=== PATIENT | female | born 1945 | race Caucasian/White ===

== ENCOUNTER 2020-10-05 13:55 | Emergency (ER) | payer MEDICARE, SELFPAY ==
[2020-10-05 14:04] VITALS: BP 128/73; PULSE 69; RESP 16; O2SAT 98; BMI 22.8
--- NOTE | 2020-10-05 14:20 | XRR_ITS ---
PROCEDURE INFORMATION: Exam: XR Right Ankle Exam date and time: 10/05/2020 2:23 PM Age: 75 years old Clinical indication: Injury or trauma; Fall; Blunt trauma; Ankle; Right TECHNIQUE: Imaging protocol: XR Right ankle. Views: 3 or more views. COMPARISON: No relevant prior studies available. FINDINGS: Bones/joints: Comminuted fracture of the distal shaft of the fibula. There is lateral angulation of the distal fracture fragment. Transverse fracture of the medial malleolus. Widening of the tibiofibular articulation. Disruption of the tibiotalar articulation. Talus and calcaneus appear intact. Soft tissues: Soft tissue swelling noted. XR/XR ankle RT min 3V* [id number] IMPRESSION: Fracture/dislocation of the right ankle the, as above.
--- NOTE | 2020-10-05 14:20 | CTR_ITS ---
PROCEDURE INFORMATION: Exam: CT Head Without Contrast Exam date and time: 10/05/2020 2:23 PM Age: 75 years old Clinical indication: Injury or trauma; Fall; Blunt trauma (contusions or hematomas); Without loss of consciousness; Patient HX: Missed and fell 3 steps C/O syncope shortly after; Additional info: Fall, loss of consciousness TECHNIQUE: Imaging protocol: Computed tomography of the head without contrast. Radiation optimization: All CT scans at this facility use at least one of these dose optimization techniques: automated exposure control; mA and/or kV adjustment per patient size (includes targeted exams where dose is matched to clinical indication); or iterative reconstruction. COMPARISON: No relevant prior studies available. RADIATION DOSE METRICS: Total DLP (mGy-cm): 723.36 FINDINGS: Brain: Moderate white matter disease and volume loss are identified. There is no acute infarct or edema. No hemorrhage. Cerebral ventricles: No ventriculomegaly. Bones/joints: Unremarkable. No acute fracture. Paranasal sinuses: Visualized sinuses are unremarkable. No fluid levels. Mastoid air cells: Visualized mastoid air cells are well aerated. Soft tissues: Unremarkable. CT/CT head wo con* [id number] IMPRESSION: There are no acute concerning abnormalities. Radiation Dose CTDIVOL = (mGy): DLP = 723.36 (mGy-cm)
--- NOTE | 2020-10-05 14:20 | XRR_ITS ---
PROCEDURE INFORMATION: Exam: XR Left Ankle Exam date and time: 10/05/2020 2:23 PM Age: 75 years old Clinical indication: Injury or trauma; Fall; Blunt trauma; Ankle; Left TECHNIQUE: Imaging protocol: XR Left ankle. Views: 3 or more views. COMPARISON: No relevant prior studies available. FINDINGS: Bones/joints: No fracture or other acute osseous abnormality. No joint narrowing, dislocation, or effusion noted. Soft tissues: Mild lateral soft tissue swelling. XR/XR ankle LT min 3V* [id number] IMPRESSION: 1. Mild lateral soft tissue swelling. 2. No acute fracture demonstrated.
--- NOTE | 2020-10-05 14:20 | CTR_ITS ---
PROCEDURE INFORMATION: Exam: CT Cervical Spine Without Contrast Exam date and time: 10/05/2020 2:23 PM Age: 75 years old Clinical indication: Injury or trauma; Fall; Blunt trauma; Patient HX: Missed and fell 3 steps TECHNIQUE: Imaging protocol: Computed tomography images of the cervical spine without contrast. Radiation optimization: All CT scans at this facility use at least one of these dose optimization techniques: automated exposure control; mA and/or kV adjustment per patient size (includes targeted exams where dose is matched to clinical indication); or iterative reconstruction. COMPARISON: No relevant prior studies available. RADIATION DOSE METRICS: Total DLP (mGy-cm): 281.69 FINDINGS: Vertebrae: No acute fracture. Normal alignment. Degenerative change is identified in the spine. There is disc space narrowing and osteophyte formation especially at C5/6 and C6/7. Soft tissues: Unremarkable. Lungs: Lung apices are normal. CT/CT cervical spin wo con* [id number] IMPRESSION: There is no evidence for fracture or facet dislocation. Radiation Dose CTDIVOL = (mGy): DLP = 281.69 (mGy-cm)
--- NOTE | 2020-10-05 14:37 | ED_ITS ---
HPI - Extremity Problem General: Chief complaint: Extremity Injury, Upper Stated complaint: RIGHT ANKLE DEFORMITY S/P FALL Time Seen by Provider: 10/05/20 13:55 Source: patient and EMS Mode of arrival: EMS Limitations: no limitations History of Present Illness: HPI Narrative: Patient is a 75-year-old female who presents to the emergency department following a fall. She was at an auction when she fell down some steps, about 3 steps. She sustained injury to both ankles but the right is more severe. She was unable to bear weight after the fall. She had an episode of loss of consciousness shortly after the fall, and it was brief and only lasted a few seconds. According to the patient she gets syncopal episodes when she is stressed. She complains of pain in both ankles only. She denies any neck pain, chest pain, abdominal pain, nausea or vomiting. She denies difficulty breathing. MD Complaint: extremity pain Pain Consistency: constant Location: left, right and lower extremity Severity scale (1-10): 10 Quality: sharp Radiation: none Relieving factors: nothing Exacerbating factors: weight bearing Associated symptoms: Reports arthralgias; Deny chest pain, fever(s), myalgias, rash or short of breath Review of Systems General: Reports: 10 or more systems reviewed and unremarkable except in HPI and below Const: Denies: fever(s) Card: Denies: chest pain Skin/Breast: Denies: rash Physical Exam Const: COMMON NORMALS: no acute distress, average body habitus, patient oriented x3, no limitations, healthy appearing, alert and well nourished HENMT: COMMON NORMALS: normocephalic, atraumatic and moist oral mucous membranes HEAD & SCALP: normocephalic and atraumatic Eye: COMMON NORMALS: Equal, round and reactive pupils present, EOMs intact bilaterally, conjunctivae normal and no scleral icterus CONJUNCTIVA: Yes conjunctivae normal PUPIL: Yes Equal, round and reactive pupils present Neck/C-Spine: COMMON NORMALS: full ROM, supple, no meningeal signs, no JVD and No carotid bruits Chest: COMMONS NORMALS: normal inspection of the chest and normal palpation of entire chest wall Resp: COMMON NORMALS: normal respiratory effort, No retractions, No use of accessory muscles, clear to auscultation bilaterally and percussion normal AUSCULTATION: clear to auscultation bilaterally PERCUSSION: percussion normal Cardio: COMMON NORMALS: no JVD, regular rate, regular rhythm, S1 normal heart sound present, S2 normal heart sound present, No gallops present (Cardio), No clicks present (Cardio), No murmurs present (Cardio), No rub (Cardio) and Peripheral pulses 2+ throughout RATE: regular rate RHYTHM: regular rhythm HEART SOUNDS: S1 normal heart sound present and S2 normal heart sound present PERIPHERAL PULSES: Peripheral pulses 2+ throughout GI: COMMON NORMALS: Normal to inspection, nondistended, normoactive bowel sounds present, Soft to palpation, non-tender, No hepatosplenomegaly present, no masses and no bruits PALPATION: Yes Soft to palpation and Yes No hepatosplenomegaly present Extremity: COMMON NORMALS: normal to inspection, full ROM, capillary refill normal, no calf tenderness and no pedal edema RIGHT LOWER EXTREMITY: Yes foot & digits Right ankle: Yes inspection (Swollen with some deformity noted.), Yes palpation (Marked tenderness to palpation both medially and laterally.), Yes ROM (Reduced range of motion) and Yes neurovascular exam (Brisk dorsalis pedis pulsation) LEFT LOWER EXTREMITY: Yes ankle joint Left ankle: Yes inspection (Swelling over the lateral malleolus), Yes palpation (Tenderness over the lateral malleolus), Yes ROM (Reduced) and Yes neurovascular exam (Intact with brisk dorsalis pedis.) Neuro: COMMON NORMALS: patient oriented x3 SENSORIUM/ORIENTATION: Yes alert MENINGEAL SIGNS: Yes no meningeal signs Skin: COMMON NORMALS: no rashes or lesions noted, no wounds, turgor normal, no jaundice, no petechiae and no mottling GENERAL SKIN EXAM: no rashes or lesions noted and turgor normal Procedures Orthopedic Joint Reduction Joint #1: Time Out Performed: Yes Side: right Joint Reduction Location: ankle Analgesia: procedural sedation Technique used: traction/counter-traction and direct manipulation Post-reduction neuro exam: intact Post-reduction vascular: intact Post Reduction X-Ray Obtained: Yes Post Reduction X-Ray Results: reduced Splint Applied: Yes Patient Tolerated Procedure: well Orthopedic Splinting/Casting Injury #1: Side: right Lower Extremity Injury Location: ankle Lower Extremity Immobilizer: posterior splint and stirrup splint Other Orthopedic Equipment: crutches Procedural Sedation Indication: fracture/dislocation reduction ASA Class: I Preparation: nuclear monitoring technician applied, pulse oximeter and supplemental O2 applied IV Etomidate dose (mg): 5 Patient Tolerated Procedure: well Complications: none Course Reevaluation(s): Reevaluation #1: Discussed her post reduction xrays with her - satisfactory alignment. Will discharge her home with crutches. She is f/u with ortho and [place] she states that she will follow up with an orthopedic surgeon close to her home. Time: 17:32 Vital Signs: Vital signs: Vital Signs Pulse Rate 93 10/05/20 18:44 Respiratory Rate 17 10/05/20 18:44 Blood Pressure 132/73 10/05/20 18:44 Pulse Oximetry 97 10/05/20 18:44 MDM - Extremity (Nontraumatic) MDM Narrative: Medical decision making narrative: Pleasant 75-year-old female patient who fell down some steps and sustained a closed fracture dislocation of her right ankle. The fracture dislocation was successfully reduced under procedural sedation and she was placed in a posterior leg splint with stirrup and discharge with crutches. She is not from the area to follow-up with her orthopedic surgeon or to her home. She also discharged home with a prescription for pain medication. Medical Records: Attestation: I reviewed the patient's medical records. Imaging Data^: Xray Ortho: Attestation: I personally reviewed and interpreted this imaging study as follows: Radiologist's impression: [address] [address] XRay Report Signed Patient: Allison Camargo #: [id number] : 6Acct#:[id number] Age/Sex: 75 / FADM Date: 10/05/20 Loc: [facility]/Bed: Attending Dr: Ordering Provider/Ordering MD: Roberto Carlos Gutierrez MD, [facility] Date of Service: 10/05/20 Procedure(s): XR ankle RT min 3V* [id number] Accession Number(s): [id number] Report Number: [id number] PROCEDURE INFORMATION: Exam: XR Right Ankle Exam date and time: 10/05/2020 4:58 PM Age: 75 years old Clinical indication: Injury or trauma; Fall; Fracture, traumatic; Closed fracture; Ankle; Right; Not specified; Additional info: Post reduction TECHNIQUE: Imaging protocol: XR Right ankle. Views: 3 or more views. COMPARISON: CR (LOW EX, ) 10/05/2020 2:40 PM FINDINGS: Limitations: Immobilization device overlies the area of interest, obscuring fine detail. Bones/joints: Status post reduction and immobilization of right ankle fracture dislocation. There has been significant reduction in displacement of the fibular fracture fragments when compared to the prior study. Similarly, reduced displacement of the medial malleolar fracture noted. The components of the ankle joint appear in near anatomic alignment. Soft tissues: Unremarkable. XR/XR ankle RT min 3V* 11860 IMPRESSION: 1. Immobilization device overlies the area of interest, obscuring fine detail. 2. Status post reduction and immobilization of right ankle fracture dislocation. The major fracture fragments appear in near anatomic alignment. Dictated By:Srinivasan Ward MD Signed By:Srinivasan Ward MDSigned Date/Time:10/05/201848 DD/ [address] [address] XRay Report Signed Patient: Allison Camargo #: [id number] : 6Acct#:[id number] Age/Sex: 75 / FADM Date: 10/05/20 [facility] Attending Dr: Ordering Provider/Ordering MD: Roberto Carlos Gutierrez MD, [facility] Date of Service: 10/05/20 Procedure(s): XR ankle LT min 3V* [id number] Accession Number(s): [id number] Report Number: [id number] PROCEDURE INFORMATION: Exam: XR Left Ankle Exam date and time: 10/05/2020 2:23 PM Age: 75 years old Clinical indication: Injury or trauma; Fall; Blunt trauma; Ankle; Left TECHNIQUE: Imaging protocol: XR Left ankle. Views: 3 or more views. COMPARISON: No relevant prior studies available. FINDINGS: Bones/joints: No fracture or other acute osseous abnormality. No joint narrowing, dislocation, or effusion noted. Soft tissues: Mild lateral soft tissue swelling. XR/XR ankle LT min 3V* [id number] IMPRESSION: 1. Mild lateral soft tissue swelling. 2. No acute fracture demonstrated. Dictated By:Srinivasan Ward MD Signed By:Srinivasan Ward MDSigned Date/Time:10/05/20 155 DD/ [address] [address] XRay Report Signed Patient: Allison Camargo #: [id number] : 1945cct#:[id number] Age/Sex: 75 / FADM Date: 10/05/20 Loc: [facility]/Bed: Attending Dr: Ordering Provider/Ordering MD: Roberto Carlos Gutierrez MD, [facility] Date of Service: 10/05/20 Procedure(s): XR ankle RT min 3V* 98680 Accession Number(s): [id number] Report Number: [id number] PROCEDURE INFORMATION: Exam: XR Right Ankle Exam date and time: 10/05/2020 2:23 PM Age: 75 years old Clinical indication: Injury or trauma; Fall; Blunt trauma; Ankle; Right TECHNIQUE: Imaging protocol: XR Right ankle. Views: 3 or more views. COMPARISON: No relevant prior studies available. FINDINGS: Bones/joints: Comminuted fracture of the distal shaft of the fibula. There is lateral angulation of the distal fracture fragment. Transverse fracture of the medial malleolus. Widening of the tibiofibular articulation. Disruption of the tibiotalar articulation. Talus and calcaneus appear intact. Soft tissues: Soft tissue swelling noted. XR/XR ankle RT min 3V* [id number] IMPRESSION: Fracture/dislocation of the right ankle the, as above. Dictated By:Srinivasan Ward MD Signed By:Srinivasan Ward MDSigned Date/Time:10/05/20 1558 DD/ [address]: Attestation: I personally reviewed and interpreted this imaging study as follows: Radiologist's impression: [employer] [address] [place] [address] [address] Scan Report Signed Patient: Allison Camargo #: [id number] : 1945cct#:[id number] Age/Sex: 75 / FADM Date: 10/05/20 Loc: [facility]/Bed: Attending Dr: Ordering Provider/Ordering MD: Roberto Carlos Gutierrez MD, [facility] Date of Service: 10/05/20 Procedure(s): CT cervical spin wo con* 22830 Accession Number(s): [id number] Report Number: [id number] PROCEDURE INFORMATION: Exam: CT Cervical Spine Without Contrast Exam date and time: 10/05/2020 2:23 PM Age: 75 years old Clinical indication: Injury or trauma; Fall; Blunt trauma; Patient HX: Missed and fell 3 steps TECHNIQUE: Imaging protocol: Computed tomography images of the cervical spine without contrast. Radiation optimization: All CT scans at this facility use at least one of these dose optimization techniques: automated exposure control; mA and/or kV adjustment per patient size (includes targeted exams where dose is matched to clinical indication); or iterative reconstruction. COMPARISON: No relevant prior studies available. RADIATION DOSE METRICS: Total DLP (mGy-cm): 281.69 FINDINGS: Vertebrae: No acute fracture. Normal alignment. Degenerative change is identified in the spine. There is disc space narrowing and osteophyte formation especially at C5/6 and C6/7. Soft tissues: Unremarkable. Lungs: Lung apices are normal. CT/CT cervical spin wo con* [id number] IMPRESSION: There is no evidence for fracture or facet dislocation. Radiation Dose CTDIVOL = (mGy): DLP = 281.69 (mGy-cm) Dictated By:Mick Berrios MD Signed By:Mick Berrios MDSigned Date/Time:10/05/20 1531 DD/ 1529 CT Head: Attestation: I personally reviewed and interpreted this imaging study as follows: Radiologist's impression: [facility] [address] [place] [address] CT Scan Report Signed Patient: Allison Camargo #: [id number] : 6Acct#:[id number] Age/Sex: 75 / FADM Date: 10/05/20 Loc: [facility]/Bed: Attending Dr: Ordering Provider/Ordering MD: Roberto Carlos Gutierrez MD, [facility] Date of Service: 10/05/20 Procedure(s): CT head wo con* 28021 Accession Number(s): [id number] Report Number: [id number] PROCEDURE INFORMATION: Exam: CT Head Without Contrast Exam date and time: 10/05/2020 2:23 PM Age: 75 years old Clinical indication: Injury or trauma; Fall; Blunt trauma (contusions or hematomas); Without loss of consciousness; Patient HX: Missed and fell 3 steps C/O syncope shortly after; Additional info: Fall, loss of consciousness TECHNIQUE: Imaging protocol: Computed tomography of the head without contrast. Radiation optimization: All CT scans at this facility use at least one of these dose optimization techniques: automated exposure control; mA and/or kV adjustment per patient size (includes targeted exams where dose is matched to clinical indication); or iterative reconstruction. COMPARISON: No relevant prior studies available. RADIATION DOSE METRICS: Total DLP (mGy-cm): 723.36 FINDINGS: Brain: Moderate white matter disease and volume loss are identified. There is no acute infarct or edema. No hemorrhage. Cerebral ventricles: No ventriculomegaly. Bones/joints: Unremarkable. No acute fracture. Paranasal sinuses: Visualized sinuses are unremarkable. No fluid levels. Mastoid air cells: Visualized mastoid air cells are well aerated. Soft tissues: Unremarkable. CT/CT head wo con* [id number] IMPRESSION: There are no acute concerning abnormalities. Radiation Dose CTDIVOL = (mGy): DLP = 723.36 (mGy-cm) Dictated By:Mick Berrios MD Signed By:Mick Berrios MDSigned Date/Time:10/05/20 1527 DD/ 1525 Discharge Plan Discharge Patient Disposition: Home Clinical Impression: Closed fracture dislocation of ankle Qualifiers: Encounter type: initial encounter Laterality: right Qualified Code(s): S82.891A - Other fracture of right lower leg, initial encounter for closed fracture Condition: Stable Prescriptions: New hydrocodone-acetaminophen 5-325 mg tablet 1 tab PO Q6H PRN (Reason: pain) Qty: 30 RF: 0 Continued latanoprost 0.005 % Drops 1 drp OPHTHALMIC (EYE) DAILY RF: 0 Norvasc 5 mg Tablet 5 mg PO DAILY RF: 0 timolol 0.5 % Drops 1 drp OPHTHALMIC (EYE) BID RF: 0 brimonidine 0.2 % drops 1 drp ophthalmic (eye) BID RF: 0 Vitamin B-12 1 tab PO DAILY RF: 0 Vitamin C 1 tab PO DAILY RF: 0 Vitamin D3 1 cap PO DAILY RF: 0 multivitamin Tablet 1 tab PO DAILY RF: 0 Discharge Orders: Discharge ED (Routine); Ordered 10/05/20 Ordered By: Roberto Carlos Gutierrez Discharge Diet: Usual diet Discharge Activity: Limit activity as instructed and Use walker/crutches as instructed Patient Instructions: Ankle Fracture (ED), Ankle Dislocation (ED), Opioid Safety Activity Restrictions/Additional Instructions: Return for any new or worsening symptoms. Follow-up with your primary care provider within 1 week. Follow-up with an orthopedic surgeon as soon as possible within the next [address] Take the pain medicine as needed for pain. Elevate the foot to reduce swelling. If you notice your toes getting pale or bluish in color it means a splint is too tight and so you need to take off the splint immediately. If you have pain on moving your toes the splint is too tight also and so take it off immediately. Keep the splint clean and dry do not get it wet. Coding Level of Care Code ED Senior [employer] Exam Comprehensive
[2020-10-05] MEDS: ketorolac 30 mg/mL INJ IVP (16:53)
[2020-10-05 16:54] VITALS: BP 154/69; PULSE 87; RESP 16; O2SAT 98
--- NOTE | 2020-10-05 16:54 | XRR_ITS ---
PROCEDURE INFORMATION: Exam: XR Right Ankle Exam date and time: 10/05/2020 4:58 PM Age: 75 years old Clinical indication: Injury or trauma; Fall; Fracture, traumatic; Closed fracture; Ankle; Right; Not specified; Additional info: Post reduction TECHNIQUE: Imaging protocol: XR Right ankle. Views: 3 or more views. COMPARISON: CR (LOW EXM, ) 10/05/2020 2:40 PM FINDINGS: Limitations: Immobilization device overlies the area of interest, obscuring fine detail. Bones/joints: Status post reduction and immobilization of right ankle fracture dislocation. There has been significant reduction in displacement of the fibular fracture fragments when compared to the prior study. Similarly, reduced displacement of the medial malleolar fracture noted. The components of the ankle joint appear in near anatomic alignment. Soft tissues: Unremarkable. XR/XR ankle RT min 3V* [id number] IMPRESSION: 1. Immobilization device overlies the area of interest, obscuring fine detail. 2. Status post reduction and immobilization of right ankle fracture dislocation. The major fracture fragments appear in near anatomic alignment.
[2020-10-05 18:44] VITALS: BP 132/73; PULSE 93; RESP 17; O2SAT 97
== END 2020-10-05 18:38 | disposition home or self-care (01) ==
PROVIDERS: Emergency Provider Family Medicine
DX: S82.451A Displaced comminuted fracture of shaft of right fibula, initial encounter for closed fracture (principal); S82.51XA Displaced fracture of medial malleolus of right tibia, initial encounter for closed fracture; W10.8XXA Fall (on) (from) other stairs and steps, initial encounter
CPT/HCPCS: 27810; 70450; 72125; 73610; 96374; 99284; E0114; J1885; J3490